=== PATIENT | male | born 1945 | race Caucasian/White ===

== ENCOUNTER 2022-07-17 13:23 | Outpatient (CLI) | payer MEDICARE, SELFPAY ==
[2022-07-17 09:39] LABS: ALT 28 U/L (16-63); AST 23 U/L (15-37); Albumin 3.8 g/dL (3.4-5.0); Alkaline Phosphatase 56 U/L (46-116); Bilirubin, Direct 0.1 mg/dL (0.0-0.2); Bilirubin, Total 0.5 mg/dL (0.2-1.0); Total Protein 6.9 g/dL (6.4-8.2)
[2022-07-18 16:06] LABS: PSA, Ultrasensitive 0.02 ng/mL (<= 6.5)
[2022-07-22 11:32] LABS: Testosterone, Total <7.0 ng/dL (240-950)
== END 2022-07-17 13:24 | disposition home or self-care (01) ==
PROVIDERS: PCP Neuromusculoskeletal Medicine & OMM; Visit Provider Radiology Radiation Oncology
DX: C61 Malignant neoplasm of prostate (principal)
CPT/HCPCS: 36415; 80076; 84153; 84403

== ENCOUNTER 2023-01-20 14:09 | Outpatient (CLI) | payer MEDICARE, SELFPAY ==
[2023-01-20 14:31] LABS: Abs Immature Grans 0.04 10^3/uL (0.0-0.06); Absolute Basophil Count 0.04 10^3/uL (0.0-0.2); Absolute Eosinophil Count 0.31 10^3/uL (0.0-0.7); Absolute Lymphocyte Count 0.71 10^3/uL (1.2-3.4); Absolute Monocyte Count 0.43 10^3/uL (0.1-0.8); Absolute Neutrophil Count 3.75 10^3/uL (1.2-6.7); Basophils % 0.8; Eosinophils % 5.9; HCT 41.9 % (40.0-50.0); HGB 14.5 g/dL (13.5-17.5); Immature Grans % 0.8; Lymphocytes % 13.4; MCH 32.8 pg (27.0-33.0); MCHC 34.6 % (32.0-36.0); MCV 95 fL (80-95); MPV 8.8 fL (8.0-11.0); Monocytes % 8.1; Platelet Count 160 10^3/uL (130-400); RBC 4.42 10^6/uL (4.36-5.78); RDW 12.1 % (11.8-14.1); RDW-SD 42.4 fL; WBC 5.28 10^3/uL (4.4-10.8)
[2023-01-20 14:53] LABS: ALT 25 U/L (16-63); AST 15 U/L (15-37); Albumin 3.6 g/dL (3.4-5.0); Alkaline Phosphatase 99 U/L (46-116); Anion Gap 8.4 mmol/L (3-11); BUN 15 mg/dL (7-18); Bilirubin, Total 0.3 mg/dL (0.2-1.0); CO2 27.6 mmol/L (21.0-32.0); Calcium 9.3 mg/dL (8.5-10.1); Chloride 106 mmol/L (98-107); Glucose 184 mg/dL (74-106); Potassium 3.9 mmol/L (3.5-5.1); Sodium 142 mmol/L (136-145); Total Protein 7.2 g/dL (6.4-8.2)
== END 2023-01-20 14:10 | disposition home or self-care (01) ==
PROVIDERS: PCP Neuromusculoskeletal Medicine & OMM; Visit Provider Nurse Practitioner Family
DX: C61 Malignant neoplasm of prostate (principal)
CPT/HCPCS: 36415; 80053; 85025

== ENCOUNTER 2025-06-26 10:30 | Outpatient (CLI) | payer MEDICARE, SELFPAY ==
--- NOTE | 2025-06-26 06:00 | DI.RAD_ITS ---
Exam(s) XR PAIN CLINIC LUMBAR SP 2V EXAM: XR PAIN CLINIC LUMBAR SP 2V CLINICAL HISTORY: DX: Lumbar Radiculopathy TECHNIQUE: 2D and realtime digital imaging was performed. CONTRAST MATERIAL: Refer to procedure report. COMPARISON: No exams were available for comparison FINDINGS: Fluoroscopy was provided for Dr. Jarrell during the performance of a caudal steroid injection. Please refer to the procedure report for complete details. Ka,r=7.11 mGy IMPRESSION: RADIATION DOSE DELIVERED: 0.0 0.0 0
[2025-06-26 10:35] VITALS: BP 131/68; PULSE 70; RESP 18; TEMP 37.2; O2SAT 96
--- NOTE | 2025-06-26 11:25 | PDOC.PAIN ---
Date of service: 06/26/25 Time of Service: 11:57 Pain Managment Procedure Note Procedure Note Procedure Note: Caudal Epidural Steroid Injection ? Location: Caudal Epidural Space ?Pre-procedure Diagnosis: M54.17-Radiculopathy, lumbosacral region ? Post-procedure Diagnosis:? The same as above ? Sedation:? none? Estimated blood loss:? less than 2 cc ?Surgeon:? Ta Jarrell MD ? Procedure Detail:?? The procedure and potential risks were explained to the patient and informed written consent was obtained. The patient was escorted to the procedure room and placed in the prone position. Pillows were utilized for proper positioning and comfort. Time out was performed in the procedure room with nursing staff confirming the patient's identity, procedure to be performed, allergies, and any blood thinning or anti-platelet medications. The patient's lower back/coccyx area was prepped with ChloraPrep x2 and draped in a sterile fashion. Sterile technique was maintained throughout the procedure.? Sterile gloves were used, a face mask was worn, and new single dose vials of all medications were used with the top being swabbed with alcohol and given time to dry prior to withdrawal of medication. Subcutaneous 1% lidocaine was instilled into the superficial soft tissue of the patient's lower back/coccyx area for local anesthesia using a 25-gauge 1.5 inch needle. Under fluoroscopic guidance a 17G Tuohy needle was placed within the caudal canal. An 19 G Arrow catheter was directed cephalad to the RIGHT at L5. 1cc of Omnipaque 240 contrast was injected showing appropriate spread in the caudal epidural space.? Placement was confirmed in AP and lateral projection. 80 mg of Depo-Medrol and 3 ml saline was injected without complication. The needle and catheter was removed intact. The patient tolerated the procedure well and was transported to the recovery area for observation and discharge instructions. Permanent images saved and recorded. Plan:? Follow prn. PAIN: PRE-PROCEDURE 04/30 POST-PROCEDURE 01/28 COMMENT: Consider reevaluation with Dr. Thacker at if is not improving. Could repeat if he gets significant lasting relief Coding Conscious Sedation used for procedure: No CPT Codes: Inj Spine L/S w/Imaging - 69218 ([id number] ~G) Additional Codes: Date of Service (83523) Date of service: 06/26/25 Diagnoses: M54.17-Radiculopathy, lumbosacral region
[2025-06-26 11:53] VITALS: PULSE 63; O2SAT 92
[2025-06-26] MEDS: Omnipaque 240 MG/ML 50 ML BTL IJ (11:57)
[2025-06-26] MEDS: methylPREDNISolone ACETATE 40 MG/ML VIAL IJ (11:57)
[2025-06-26] MEDS: Epidural Tray 1 EACH MC (11:57)
== END 2025-06-26 10:31 | disposition home or self-care (01) ==
LOC: PC 10:32
PROVIDERS: PCP Family Medicine; Visit Provider Anesthesiology Pain Medicine
DX: M54.50 Low back pain, unspecified (principal); M54.16 Radiculopathy, lumbar region
CPT/HCPCS: 62323; 72100; J1010; Q9967

== ENCOUNTER 2025-08-28 13:00 | Outpatient (CLI) | payer MEDICARE, SELFPAY ==
--- NOTE | 2025-08-28 06:00 | DI.RAD_ITS ---
Exam(s) XR PAIN CLINIC LUMBAR SP 2V EXAM: XR PAIN CLINIC LUMBAR SP 2V CLINICAL HISTORY: DX: Lumbar Radiculopathy. TECHNIQUE: Fluoroscopy was provided for the referring physician for guidance with performing pain clinic injection procedure. COMPARISON: No exams were available for comparison FINDINGS: Please see procedure note for details. Fluoro time: 39.5 seconds RADIATION DOSE DELIVERED: Ka,r=17.5 mGy
[2025-08-28 07:02] VITALS: BP 176/61; PULSE 61; RESP 18; TEMP 36.4; O2SAT 98
[2025-08-28 14:11] VITALS: PULSE 66; O2SAT 96
[2025-08-28 14:20] VITALS: PULSE 64; O2SAT 95
--- NOTE | 2025-08-28 14:31 | PDOC.PAIN ---
Date of service: 08/28/25 Time of Service: 14:37 Pain Managment Procedure Note Procedure Note Procedure Note: Lumbar Transforaminal Epidural Steroid Injection ? Location: RIGHT L5 and S1 ? Pre-procedure Diagnosis: M54.17-Radiculopathy, lumbosacral region M54.16 Radiculopathy, lumbar region ? Post-procedure Diagnosis:? The same as above ? Sedation:? none ? Estimated blood loss:? less than 2 cc ? Surgeon:? Ta Jarrell MD COMMENT: Patient has spondylolisthesis since previous stenosis of right foramen L5. He had 1 CT-guided L5 transforaminal steroid injection without relief. He had a caudal injection by January with some relief but only for a couple weeks. ? Procedure Detail:?? The procedure and potential risks were explained to the patient and informed written consent was obtained. The patient was escorted to the procedure room and placed in the prone position. Pillows were utilized for proper positioning and comfort. Time out was performed in the procedure room with nursing staff confirming the patient's identity, procedure to be performed, allergies, and any blood thinning or anti-platelet medications. The patient's lower back was prepped with ChloraPrep and draped in a sterile fashion. Sterile gloves were used, a face mask was worn, and new single dose vials of all medications were used with the top being swabbed with alcohol and given time to dry prior to withdrawal of medication. A right-sided oblique fluoroscopic view was obtained, with visualization of L5-S1. Lidocaine 1% was used to anesthetize the skin. The tip of a 22-gauge, Quincke needle was advanced toward the 6 o'clock position of the superior pedicle at the target level.? It was advanced just under the pedicle to the neural foramen L5-S1. Correct needle placement was confirmed through review of the fluoroscopy. Next, following negative aspiration, 1cc's of Omnipaque 240 contrast was injected under live fluoroscopy which showed good flow throughout the epidural space and no evidence of vascular flow or flow into adjacent compartments. Next, following negative aspiration, 40mg Depo-Medrol and 0.5ml of 0.5% bupivacaine was injected. The needle was gently removed.? The procedure was also performed in the same fashion at S1 right.? The patient tolerated the procedure well and was discharged home with instructions.? Permanent images saved and recorded. Plan:? Follow up prn PAIN: PRE PROCEDURE 01/28 POST PROCEDURE 02/28 COMMENT: Patient can follow-up in the office if not improved. If he gets good sustained relief then could repeat as needed. Potentially return to [facility] neurosurgery. Coding Conscious Sedation used for procedure: No CPT Codes: Transforaminal Lumbar/Sacral (includes fluoro) - 50013 ([id number] ~G) Transforaminal Lumbar/Sacral (includes Fluoro) each add'l - [id number] ([id number] ~G) Additional Codes: Date of Service () Diagnoses: M54.17-Radiculopathy, lumbosacral region M54.16 Radiculopathy, lumbar region
[2025-08-28] MEDS: Omnipaque 240 MG/ML 50 ML BTL IJ (14:34)
[2025-08-28] MEDS: methylPREDNISolone ACETATE 40 MG/ML VIAL IJ (14:34)
[2025-08-28] MEDS: Nerve Block Tray 1 EACH MC (14:34)
[2025-08-28] MEDS: Bupivacaine 0.5% Pres-Free 10 ML VIAL IJ (14:34)
== END 2025-08-28 13:01 | disposition home or self-care (01) ==
LOC: PC 13:00
PROVIDERS: PCP Family Medicine; Visit Provider Anesthesiology Pain Medicine
DX: M54.50 Low back pain, unspecified (principal); M54.16 Radiculopathy, lumbar region; M54.17 Radiculopathy, lumbosacral region
CPT/HCPCS: 64483; 64484; 72100; J0665; J1010; Q9967